=== PATIENT | male | born 1975 | race Caucasian/White ===

== ENCOUNTER 2021-09-20 18:23 | Emergency (ER) | payer OTHER ==
[2021-09-20 20:01] LABS: BASOPHIL 0.3 % (0-2); EOSINOPHIL 0.5 % (0-5); HCT 42.7 % (42.0-52.0); HGB 15.3 g/dl (13.2-18.0); LYMPHOCYTE 23.5 % (15-48); MCH 30.5 pg (25.0-31.0); MCHC 35.8 g/dL (32.0-36.0); MCV 85.1 fL (78.0-100.0); MONOCYTE 10.5 % (0-12); MPV 10.8 fL (6.0-9.5); NEUTROPHIL 64.9 % (41-80); NRBC 0; PLT 170 K/uL (150-400); RBC 5.02 M/uL (4.70-6.00); RDW 11.9 % (11.5-14.0); WBC 7.3 K/uL (4.0-10.5)
[2021-09-20 20:06] LABS: INR 1.05 (0.9-1.2); PROTHROMBIN TIME 13.1 SECONDS (11.8-13.4); PTT 25.8 SECONDS (24.4-34.7)
[2021-09-20 20:20] LABS: ALBUMIN 3.3 g/dL (3.4-5.0); BILIRUBIN - TOTAL 0.4 mg/dL (0.2-1.0); BUN/CREAT RATIO (CALC) 17.3 RATIO; CREATININE 0.81 mg/dL (0.67-1.17); POTASSIUM 3.3 mmol/L (3.5-5.1); TOTAL PROTEIN 7.3 g/dL (6.4-8.2)
[2021-09-20 20:22] LABS: LACTIC ACID 1.2 mmol/L (0.4-1.9)
[2021-09-20 20:34] LABS: INFLUENZA A NAA NEGATIVE (NEGATIVE)
[2021-09-20 20:36] LABS: CORONAVIRUS 2019 SARS-COV-2 POSITIVE (NEGATIVE)
[2021-09-20] MEDS ORDERED: ZPAK PO (23:03)
[2021-09-20] MEDS ORDERED: PULMICORT FLE180 MCG INH (23:03)
[2021-09-20] MEDS ORDERED: VENTOLIN HFA IN18 GM INH (23:03)
[2021-09-20] MEDS ORDERED: MUCINEX DM ER1 EACH PO (23:03)
== END 2021-09-20 23:24 | disposition home or self-care (01) ==
LOC: FER 18:23
PROVIDERS: Nurse Practitioner Family
DX: U07.1 COVID-19 (principal); J12.82 Pneumonia due to coronavirus disease 2019
CPT/HCPCS: 36415; 36600; 71045; 71275; 80053; 82803; 83605; 84145; 84484; 85025; 85379; 85610; 85730; 87040; 93005; 94664; Q9967; U0002